=== PATIENT | male | born 1970 | race Caucasian/White ===

== ENCOUNTER → 2016-09-05 | Outpatient (CLI) | payer OTHER ==
[~2016-09-05] MED LIST: ASPI1TAB69 PO; ATOR40TA16 PO; CYCL1TAB29 PO; HYDR-3583 PO; LEVO150T7 PO; LISI10TA3 PO; METF500T PO; MULT-135 PO
== END ==
LOC: CPRE 12:02
PROVIDERS: ATTEND Neurological Surgery
DX: Z01.812 Encounter for preprocedural laboratory examination (principal)

== ENCOUNTER 2016-09-09 06:13 | Observation (INO) | payer OTHER ==
--- NOTE | 2016-09-06 15:37 | MH ---
cc: BYRON GANNON M.D., TIMOTHY J. M.D. HERDEL, G. FREDERICK M.D. DATE OF ADMISSION: 09/09/2016 ADMITTING DIAGNOSIS: Cervical degenerative disc disease. HISTORY OF PRESENT ILLNESS: This is a 46 year-old male who presented for an evaluation of neck pain radiating to the inferior scapular area on the right side. He states that he has had the pain since 2013. He has a history of cervical disc herniation 1993 and had posterior cervical laminectomy with Dr. Sorensen at that time. He states that in 2013 he was lifting Kettles at home and developed pain. He states that the pain was 10/10 and he saw his primary care physician who gave him some Decadron and then a MRI revealed he had two herniated discus. He saw Dr. Sorensen and was found to have right triceps weakness and tried conservative management. He states that his strength improved but he developed right index finger numbness that is constant. He was placed on gabapentin from a pain specialist and developed side effects and was not able to tolerate it. He stopped the medications, saw another pain specialist who wanted to restart the Gabapentin as well as other medications such as baclofen and Elavil. He wasn't interested in that and given that he had side effects from the Gabapentin already he tried to manage it on his own. Pain management felt that he would not benefit from injections given his previous posterior cervical spine surgery and therefore that was not an option. He states that he has daily pain, he feels like he has a knife in his Rhomboid area. He also has some pain in the right forearm with some muscle fasiculations in the right superior and lateral chest and anterior arm. He saw Dr. Dupree from neurology and he obtained a new MRI of the neck and brain. He was referred to us for evaluation of disc herniations pressing on the spinal cord. He denies any bowel or bladder incontinence. He is a avid runner and runs six days a week, 25 to 40 miles per week. He denies any left upper extremity symptoms. He has had PT in 2013 but did not feel that it helped. Pain management states that they can do injections secondary to scarring from his posterior cervical laminectomy. PAST MEDICAL HISTORY: 1. Significant for hypothyroidism. 2. Hyperlipidemia. 3. Hypertension. 4. Glucose impairment. 5. Cervical laminectomy at C4-C5 and C5-C6 in 1993. 6. Right wrist tendon repair. 7. Left meniscus repair 2013. CURRENT MEDICATIONS: 1. Levothyroxine 150 mcg daily. 2. Lisinopril 10 mg daily. 3. Metformin 500 mg daily. 4. Atorvastatin 40 mg daily. 5. Multivitamin daily. 6. Aspirin 81 mg daily, this was placed on hold one week prior to surgical intervention. ALLERGIES NO KNOWN DRUG ALLERGIES FAMILY HISTORY: Mother is alive is 73 years old, has hypertension. His father is alive at 72 years old, has coronary artery disease. His brother is alive at 44. Another brother who is alive. 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 He is , he has children. He does not smoke. He drinks alcohol on a rare occasion. REVIEW OF SYSTEMS CONSTITUTIONAL: He denies any fever or chills. EAR, NOSE, AND THROAT: No pharyngitis. Positive for sinus drainage. CARDIOVASCULAR: No chest pain or palpitations. RESPIRATORY: No cough or shortness of breath. GENITOURINARY: No dysuria or hematuria. MUSCULOSKELETAL: Positive for neck pain. NEUROLOGIC: No difficulty with speech or memory. Positive for pain in his arm with associated numbness. GASTROINTESTINAL: No nausea, vomiting, abdominal pain. PSYCHIATRIC: Positive for anxiety and depression. ENDOCRINE: No polyuria, polydipsia. HEMATOLOGIC: No bruising or bleeding tendencies. PHYSICAL EXAMINATION HEAD: Normocephalic, atraumatic. NECK: Supple. No carotid bruits heard on auscultation. LUNGS: Clear to auscultation bilaterally. CARDIOVASCULAR: Regular rate and rhythm, normal S1-S2. ABDOMEN: Soft, nontender. Positive bowel sounds. SKIN: Reveals no cyanosis or erythema. MUSCULOSKELETAL: He has 5/5 Strength in the upper and lower extremities, he ambulates without assistive device. Extension and rotation to the right side aggravates the symptoms with some restrictive range of motion. NEUROLOGIC: He is awake, alert and oriented, cranial nerves II through XII intact, His speech is fluent. Comprehension is good. Sensation is decreased primarily in the right second finger and some in the right first finger. Otherwise intact in the extremities. Reflexes 1+ in the upper extremities, 2+ in the lower extremities. No Sy's or clonus response. DATA REVIEWED; Reviewed MRI of the cervical spine from March 18, 2016, which reveals a disc osteophyte complex at C4-C5 level, eccentric to the left side. At the C5-C6 level is a disc osteophyte complex, central and ascending to the right side. At the C6-C7 level he is central and eccentric to the right side. There is left sided C4-C5 significant foraminal stenosis as well as moderate C5-C6, C6-C7 spinal and right sided foraminal stenosis. IMPRESSION: The patient has a chronic history of neck pain and right C6-C7 radiculopathy. He has undergone physical therapy without much relief and his Interventional pain specialist has informed him that he is not a candidate for cervical epidural steroid injections. The patient states that he cannot live with his current level of discomfort and activity restriction. He does have a C4-C5 disc osteophyte complex, eccentric to the left side as well as C5-C6 and C6-C7 disc osteophyte complex with spinal and foraminal stenosis to the right. The C5-C6 and C6-C7 levels appear to be most symptomatic at this point. PLAN: We have discussed treatment options with the patient which include continued conservative treatment measures with further physical therapy and pain management versus surgical intervention. We have discussed the anterior C5-C6, C6-C7 microdiskectomy with right foraminotomy infusion in detail. We have discussed the procedure, the risks, benefits, alternatives and Recovery time in great detail. We have discussed the risks along with the surgery to include but not limited to bleeding, infection, muscle weakness, voice hoarseness, difficulty swallowing, heart attack, stroke, blood clots, non fusion, scar tissue formation among others. The procedure was explained using spine models in the office and all of his questions were answered to his satisfaction. The patient states that he understands the procedure as well as the risks involved and he has requested that we proceed and he is therefore scheduled accordingly. Byron Gannon MD DICTATED BY: RENATO Santiago/jenelle /2:35 PM /2:45 PM
[~2016-09-09] VITALS: Ht 172.7 cm; Wt 73.0 kg
[~2016-09-09 06:13] MED LIST changes: -CYCL1TAB29 PO; -HYDR-3583 PO
[2016-09-09] MEDS ORDERED: METOPROLOL TARTRATE 25 MG TAB PO PRN (07:00)
[2016-09-09] MEDS ORDERED: POVIDONE IODINE 5% (ANTISEPSIS KIT) 4 APPLICATIONS EACH NARE PRN (07:00)
[2016-09-09] MEDS ORDERED: SODIUM CHLORID 0.9% 500 ML IV PRN (07:00)
[2016-09-09] MEDS ORDERED: LACTATED RINGER'S 1000 ML IV PRN (07:00)
[2016-09-09] MEDS ORDERED: INSULIN HUMAN REGULAR 1,000 UNITS/10 ML VIAL SQ PRN (07:00)
[2016-09-09] MEDS ORDERED: SODIUM CHLOR 0.9% 1000 ML INJ 1,000 ML IV SCH (07:00)
[2016-09-09] MEDS ORDERED: VANCOMYCIN HCL 1000 MG ON-CALL/NS 250 ML IV SCH ×2 (07:00)
[2016-09-09] MEDS ORDERED: CHLORHEXIDINE GLUCONATE 2 % 1 PACK (2 CLOTHS) TOPICAL PRN (07:00)
[2016-09-09] MEDS ORDERED: VANCOMYCIN HCL 1000 MG VIAL ONE (07:01)
[2016-09-09] MEDS ORDERED: BUPIVACAINE/EPINEPHRINE 0.5% PF 30 ML VIAL ONE (07:01)
[2016-09-09] MEDS ORDERED: THROMBIN (TOPICAL) 5,000 UNIT VIAL ONE (07:01)
[2016-09-09] MEDS ORDERED: GELFOAM SIZE 100 ONE (07:02)
[2016-09-09 07:11] VITALS: BP 124/76; PULSE 65; RESP 16; TEMP 98.4; O2SAT 97
[2016-09-09] MEDS ORDERED: APREPITANT 40 MG CAP ONE (08:02)
[2016-09-09] MEDS ORDERED: ACETAMINOPHEN 1000 MG/100 ML VIAL IV ONE (08:11)
[2016-09-09] MEDS ORDERED: FAMOTIDINE 20 MG/2 ML VIAL ONE (08:16)
[2016-09-09] MEDS ORDERED: DEXAMETHASONE SOD PHOS 4 MG/ML VIAL ONE (08:17)
[2016-09-09] MEDS ORDERED: SODIUM CHLORIDE 0.9% FLUSH 10 ML FLUSH IV FLUSH PRN (11:45)
[2016-09-09] MEDS ORDERED: GLUCAGON 1 MG/ML VIAL OTHER PRN (11:45)
[2016-09-09] MEDS ORDERED: DEXTROSE 50% IN WATER 50 ML VIAL(D50) IV PUSH PRN (11:45)
[2016-09-09] MEDS ORDERED: DO NOT ADM ANY ANTICOAGULANT DRUGS PRN (11:48)
--- NOTE | 2016-09-09 11:52 | PD.OP ---
MD David Collier MD Operative Report Date of Surgery: September 09, 2016 Preoperative Diagnosis: Cervical C5-6 and C6-7 advanced degenerative disc disease with disc osteophyte complex and associated spinal and foraminal stenosis; intractable neck pain with polyradiculopathy Postoperative Diagnosis: Same Procedure: Anterior cervical C5-6 and C6-7 microdiscectomy with interbody fusion; anterior C5-7 cervical plate placement; C5-6 and C6-7 interbody cage placement; microsurgical technique Anesthesia: Gen. endotracheal by Hernando Farley Surgeon: Vinayak Braswell M.D. Food Preparation Worker(s): Akosua Coker Operation and Findings: Following administration of general endotracheal anesthesia, the patient received a gram of vancomycin and Decadron 10 mg intravenously. Sequential compression devices were placed in supine position on a Edy table and all pressure points adequately padded. The head secured in a donut and anterior cervical region then shaved and prepped with Chloraprep and sterilely draped with Ioban along with the usual sterile draping. A transverse skin incision on the left side of the neck was then made after infiltrating the skin with 0.5% Marcaine with epinephrine solution extending down through the platysma. At the anterior border of the sternocleidomastoid further dissection was undertaken developing a plane between the carotid sheath laterally and the trachea esophagus medially. The prevertebral fascia was exposed and dissected out. The medial attachments of the longus colli muscles were detached and a self- retaining retractor used for exposure. The C5-6 disc space was localized with a marking the disc space and using lateral fluoroscopy. Webster distraction screws 14 mm length were placed one in the C5 and one in the C7 body interbody distraction and exposure. There was significant disc degeneration with disc height collapse and anterior osteophytes noted at the C5-6 and C6-7 levels and the osteophytes were resected with a Leksell and annulus incised with a 15 blade and further dissection undertaken using microtechnique with microscope magnification. Diskectomy was undertaken with pituitaries and the endplates were also decorticated with curettes and drill bit. And more posteriorly there was disk osteophyte complex compressing the thecal sac along with a significant uncovertebral joint hypertrophy with foraminal stenosis more prominent on the right side which was decompressed along with removal of the posterior longitudinal ligaments at both levels. The foramen was decompressed bilaterally using a Kerrison's and palpation with a nerve hook, the exiting nerve roots were felt to be free. The area was then copiously irrigated. I then placed a Peek cage packed with local autograft bone at the C5-6 interspace under fluoroscopy guidance. Webster distraction pins were removed and the holes plugged with Gelfoam for hemostasis. In order to facilitate the fusion and provide stabilization, a Precision spine cervical plate was then placed with two 14 mm variable angle screws in the C5 body, one in the C6 body, and two 14 mm fixed angle screws in the C7 body. The plate screw locking mechanism was then engaged. AP and lateral fluoroscopy confirmed good placement of the construct and the retractor was then removed. Muscular bleeding points were cauterized with bipolar cautery and Gelfoam was then also used for hemostasis which was removed. The platysma was then approximated using 3-0 Vicryl interrupted stitches and 3-0 Vicryl subcuticular stitch also placed in an interrupted fashion, and final skin closure was with Mastisol and Steri-Strips. Sterile dressing was then applied. The neck immobilized in a Gray J collar. The patient was then extubated and taken to the recovery room. There are no intraoperative complications and all sponge and needle counts were correct at the end of procedure. Estimated blood loss was about 50 cc. The patient did undergo intraoperative neurologic monitoring which remained stable throughout the surgery. Vinayak Braswell MD September 09, 2016 11:52
--- NOTE | 2016-09-09 11:58 | RADRPT ---
EXAM DATE/TIME: 09/09/2016 08:41 [facility] COMPARISON: No previous studies available for comparison. INDICATIONS : C5-C6-C7 anterior cervical fusion. Level localization. MEDICAL HISTORY : None. SURGICAL HISTORY : None. ENCOUNTER: Initial ACUITY: 1 day PAIN SCORE: Non-responsive. LOCATION: neck FINDINGS: Needle is directed at C6-C7. CONCLUSION: Needle at the C6-C7. Sukumar Peterson MD FACR on September 09, 2016 at 11:55 Board Certified Radiologist. This report was verified electronically.
[2016-09-09] MEDS ORDERED: PHENYLEPH/NS 1000 MCG/10 ML SYR IV ONE (12:00)
[2016-09-09] MEDS ORDERED: ePHEDrine/NS 25 MG/5 ML SYR IV ONE (12:00)
[2016-09-09] MEDS ORDERED: ONDANSETRON HCL 4 MG/2 ML VIAL IV PUSH ONE (12:00)
[2016-09-09] MEDS ORDERED: MAGNESIUM HYDROXIDE SUSP 30 ML CUP PO PRN (12:00)
[2016-09-09] MEDS ORDERED: RESP: ALBUTEROL 2.5 MG/3 ML NEB (PRN) NEB (12:00)
[2016-09-09] MEDS ORDERED: PROPOFOL 200 MG/20 ML AMP IV ONE (12:00)
[2016-09-09] MEDS ORDERED: ONDANSETRON HCL 4 MG/2 ML VIAL IV PRN (12:00)
[2016-09-09] MEDS ORDERED: ZOLPIDEM TARTRATE 5 MG TAB PO PRN (12:00)
[2016-09-09] MEDS ORDERED: LACTATED RINGER'S 1000 ML INJ 1,000 ML IV ONE (12:00)
[2016-09-09] MEDS ORDERED: PROCHLORPERAZINE INJ 10 MG/2 ML VIAL IM PRN (12:00)
[2016-09-09] MEDS ORDERED: ACETAMINOPHEN 325 MG TAB PO PRN (12:00)
[2016-09-09] MEDS ORDERED: cloNIDine HCL 0.1 MG TAB PO PRN (12:00)
[2016-09-09] MEDS ORDERED: MORPHINE SULFATE 4 MG/ML INJ IV PRN (12:00)
[2016-09-09] MEDS ORDERED: NEOSTIGMINE 3 MG/3 ML SYR IV ONE (12:00)
[2016-09-09] MEDS ORDERED: NS + KCL 20 MEQ INJ 1,000 ML IV SCH (12:00)
[2016-09-09] MEDS ORDERED: ALUMINUM/MAGNESIUM/SIMETH 30 ML CUP PO PRN (12:00)
[2016-09-09] MEDS ORDERED: *morphine SULFATE 8 MG/ML PERIprocedure ONLY ONE ×2 (12:04→12:51)
--- NOTE | 2016-09-09 12:04 | RADRPT ---
EXAM DATE/TIME: 09/09/2016 08:41 [facility] COMPARISON: No previous studies available for comparison. INDICATIONS : Post-op C5-C6-C7 anterior cervical fusion. MEDICAL HISTORY : None. SURGICAL HISTORY : None. ENCOUNTER: Initial ACUITY: 1 day PAIN SCORE: Non-responsive. LOCATION: Neck FINDINGS: Status post anterior cervical fusion at C5 through C7. Alignment is anatomic in the AP and lateral p rojection. ET tube and nasogastric tube are noted. CONCLUSION: Anatomic alignment. Sukumar Peterson MD FACR on September 09, 2016 at 11:54 Board Certified Radiologist. This report was verified electronically.
[2016-09-09] MEDS ORDERED: *ONDANSETRON 4 MG VIAL PERIprocedural Use ONLY ONE (12:05)
[2016-09-09] MEDS ORDERED: MIDAZOLAM HCL 2 MG/2 ML VIAL ONE (12:23)
[2016-09-09] MEDS ORDERED: fentaNYL CITRATE 250 MCG/5 ML AMP ONE (12:24)
[2016-09-09] MEDS ORDERED: CYCLOBENZAPRINE HCL 10 MG TAB PO PRN (13:00)
[2016-09-09] MEDS: ACETAMINOPHEN/HYDROcodone 325 MG/10 MG TAB PO PRN ×3 (13:21→21:32)
[2016-09-09 14:00] VITALS: BP 135/63; PULSE 79; RESP 16; TEMP 97.9; O2SAT 98
[2016-09-09] MEDS: INSULIN NovoLIN REGULAR SUPPLEMENTAL SCALE SQ SCH ×2 (16:00→21:37)
[2016-09-09 16:30] VITALS: BP 129/69; PULSE 74; RESP 16; TEMP 98.1; O2SAT 99
[2016-09-09] MEDS: MENTHOL LOZENGE BUCCAL PRN ×2 (16:30→21:32)
[2016-09-09 19:29] VITALS: BP 121/68; PULSE 64; RESP 19; TEMP 95.5; O2SAT 98
[2016-09-09] MEDS: DOCUSATE SODIUM 100 MG CAP PO SCH (21:31)
[2016-09-09] MEDS: SODIUM CHLORIDE 0.9% FLUSH 10 ML FLUSH IV FLUSH SCH (21:38)
[2016-09-09 23:25] VITALS: BP 114/71; PULSE 65; RESP 18; TEMP 97.5; O2SAT 97
[2016-09-10] MEDS: ACETAMINOPHEN/HYDROcodone 325 MG/10 MG TAB PO PRN ×2 (01:34→06:16)
[2016-09-10 03:38] VITALS: BP 119/72; PULSE 72; RESP 18; TEMP 97.2; O2SAT 97
[2016-09-10] MEDS ORDERED: LEVOTHYROXINE SODIUM 150 MCG TAB PO SCH (06:00)
[2016-09-10] MEDS: INSULIN NovoLIN REGULAR SUPPLEMENTAL SCALE SQ SCH (06:17)
[2016-09-10 08:00] VITALS: BP 133/77; PULSE 65; RESP 18; TEMP 97.9; O2SAT 99
[2016-09-10] MEDS: DOCUSATE SODIUM 100 MG CAP PO SCH (08:37)
[2016-09-10] MEDS: SODIUM CHLORIDE 0.9% FLUSH 10 ML FLUSH IV FLUSH SCH (08:44)
--- NOTE | 2016-09-10 08:52 | HHI.NSPN ---
(Ramone Garcia) History Chief Complaint: Right shoulder and upper extremity discomfort. (Ramone Garcia) Interval History Pt underwent a C5/C6 and C6/C7 anterior cervical fusion on 09/09/16. He complains of intermittent right shoulder and upper extremity discomfort. No paresthesias. Swallowing okay. Voiding well. Ambulating well. (Ramone Garcia) Review of Systems General: Negative for: fever, chills, insomnia Respiratory: Negative for: shortness of breath, cough, sputum Cardiovascular: Negative for: chest pain Gastrointestinal: Negative for: nausea, vomitting, diarrhea, constipation ( Ramone Garcia) Exam Results Vital Signs Date Time Temp Pulse Resp B/P Pulse Ox O2 Delivery O2 Flow Rate FiO2 09/10/16 08:00 97.9 65 18 133/77 99 09/09/16 12:55 Room Air 09/09/16 12:00 2 Intake and Output 09/09/16 09/09/16 09/10/16 08:00 16:00 00:00 Intake Total 2250 ml 840 ml Output Total 1225 ml 700 ml Balance 1025 ml 140 ml (Ramone Garcia) Physical Examination Resp: CTA bilaterally Heart: NSR no murmurs Abd: Soft positive bs Skin: Bandage changed by RN, clean and dry. Muscle: Moves UEs with good strength. Hubbard J collar in place. Neuro: Pt awake and alert. Follows commands well. Speech clear and appropriate. (Ramone Garcia) Lab, Micro, Other Results 09/09/16 09/09/16 09/10/16 15:00 23:00 07:00 Intake Total 2250 ml 840 ml 1210 ml Output Total 525 ml 1400 ml 2200 ml Balance 1725 ml -560 ml -990 ml Intake Oral 840 ml 1080 ml IV Total 250 ml 130 ml Other 2000 ml Output Urine Total 475 ml 1400 ml 2200 ml Estimated Blood Loss 50 ml # Voids 3 # Bowel Movements 0 0 (Ramone Garcia) Medical Decision Making Impression and Plan A: 46 y/o M s/p C5/C6 and C6/C7 ACF with plate placement. P: Discharge home Follow up as scheduled on preop instruction sheet. (Ramone Garcia) Attending Statement The exam, history, and the medical decision-making described in the above note were completed with the assistance of the mid-level provider. I reviewed and agree with the findings presented. I attest that I had a [id number] encounter with the patient on the same day, and personally performed and documented my assessment and findings in the medical record. (Vinayak Braswell MD) Ramone Garcia September 10, 2016 08:52 Vinayak Braswell MD September 10, 2016 09:16
[2016-09-10] MEDS ORDERED: CYCL1TAB29 PO (08:58)
[2016-09-10] MEDS ORDERED: HYDR-3583 PO (08:58)
[2016-09-10] MEDS ORDERED: PANTOPRAZOLE SOD 40 MG DELAYED RELEASE TAB PO SCH (09:00)
[2016-09-10] MEDS ORDERED: MULTIVITAMIN TAB PO SCH (09:00)
[2016-09-10] MEDS ORDERED: ASPIRIN EC 81 MG TABEC PO SCH (09:00)
[2016-09-10] MEDS ORDERED: ATORVASTATIN 40 MG TAB PO SCH (09:00)
[2016-09-10] MEDS ORDERED: LISINOPRIL 10 MG TAB PO SCH (09:00)
== END 2016-09-10 11:22 | disposition home or self-care (01) ==
LOC: HSDC 06:13 → HSDI 11:48 → N06A 13:13
PROVIDERS: ADMIT Neurological Surgery; ATTEND Neurological Surgery
DX: M50.122 Cervical disc disorder at C5-C6 level with radiculopathy (principal); M50.123 Cervical disc disorder at C6-C7 level with radiculopathy; M25.78 Osteophyte, vertebrae; M48.02 Spinal stenosis, cervical region; E03.9 Hypothyroidism, unspecified; E78.5 Hyperlipidemia, unspecified; I10 Essential (primary) hypertension; Z79.82 Long term (current) use of aspirin; Z87.891 Personal history of nicotine dependence
CPT/HCPCS: 20936; 22551; 22552; 22853; 72020; 72040; 76000; 82948; 94150; C1713; G0378; J0131; J0690; J1100; J2250; J2270; J2370; J2405; J2710; J3010; J3370; J3480; J7050; J7120; J8501; L0150; L0172

== ENCOUNTER 2016-12-16 12:37 | Day surgery (SDC) | payer OTHER ==
[~2016-12-16 12:37] MED LIST changes: +CYCL1TAB29 PO; +HYDR-3583 PO
[2016-12-16] MEDS ORDERED: SODIUM CHLORID 0.9% 500 ML IV PRN (14:00)
[2016-12-16] MEDS ORDERED: POVIDONE IODINE 5% (ANTISEPSIS KIT) 4 APPLICATIONS EACH NARE PRN (14:00)
[2016-12-16] MEDS ORDERED: INSULIN HUMAN REGULAR 1,000 UNITS/10 ML VIAL SQ PRN (14:00)
[2016-12-16] MEDS ORDERED: MISCELLANEOUS NURSING INFORMATION XX PRN (14:00)
[2016-12-16] MEDS ORDERED: CHLORHEXIDINE GLUCONATE 2 % 1 PACK (2 CLOTHS) TOPICAL PRN (14:00)
[2016-12-16] MEDS ORDERED: METOPROLOL TARTRATE 25 MG TAB PO PRN (14:00)
[2016-12-16] MEDS ORDERED: LACTATED RINGER'S 1000 ML IV PRN (14:00)
--- NOTE | 2016-12-16 14:39 | ECHRPT ---
Indication: TIA CONCLUSIONS Normal left ventricular size and wall thickness. The left ventricular systolic function is normal wi th an estimated ejection fraction in the range of 60-65%. Left ventricular diastolic function parameters a re normal. Normal atrial septal thickness. No atrial level shunt is demonstrated by color flow Doppler or agitated saline imaging. Structurally normal tricuspid valve. There is trace tricuspid valve regurgitation. Pulmonary arteria l systolic pressure could not be estimated due to an insufficient tricuspid valve regurgitation doppler jet for measurement. BP: / HR: Rhythm: MEASUREMENTS (Male / Female) Normal Values Technical Quality: DOPPLER TR Peak Velocity 151.0 cm/s TR Peak Gradient 9.1 mmHg Medications Complications There were no complications prior to, during or in recovery from the transesophag eal echocardiogram.. Proc. Components The patient was brought to the diagnostic imaging area in a fasting state after o btaining an informed consent. The patient was premedicated with IV Versed and IV Fentanyl. The hub associate ior pharynx was sprayed with Cetacaine spray and the patient was administered viscous Xylocaine 2 %. The KATT probe was passed into the posterior pharynx , mid-esophagus, distal esophagus, and gastric fundus. KATT was performed at multiple levels. The patient tolerated the procedure well and there were no complications. The patient was transferred to the floor in satisfactory condition.. FINDINGS LEFT VENTRICLE Normal left ventricular size and wall thickness. The left ventricular systolic function is normal wi th an estimated ejection fraction in the range of 60-65%. Left ventricular diastolic function parameters a re normal. RIGHT VENTRICLE Normal right ventricular size and systolic function. LEFT ATRIUM The left atrial size is normal. RIGHT ATRIUM The right atrial size is normal. ATRIAL APPENDAGES Normal left atrial appendage size with no evidence of thrombus formation. ATRIAL SEPTUM Normal atrial septal thickness. No atrial level shunt is demonstrated by color flow Doppler or agitated saline imaging. AORTA The aortic root and proximal ascending aorta are normal in size on limited imaging. MITRAL VALVE Structurally normal mitral valve. No mitral valve stenosis or regurgitation. AORTIC VALVE Trileaflet aortic valve. No aortic valve stenosis or regurgitation. TRICUSPID VALVE Structurally normal tricuspid valve. There is trace tricuspid valve regurgitation. Pulmonary arteria l systolic pressure could not be estimated due to an insufficient tricuspid valve regurgitation doppler jet for measurement. VESSELS The inferior vena cava is normal in size. PULMONARY VALVE The pulmonary valve is not well visualized. PERICADIUM No pericardial effusion. Jacek Ruiz MD, FACC (Electronically Signed) Final Date:16 December 2016 14:38
== END 2016-12-16 14:58 | disposition home or self-care (01) ==
LOC: HDOC 12:37 → HDIC 12:38 → HDOC 14:58
PROVIDERS: ATTEND Internal Medicine
DX: I63.9 Cerebral infarction, unspecified (principal); R93.8 Abnormal findings on diagnostic imaging of other specified body structures; Z98.1 Arthrodesis status
CPT/HCPCS: 93312; 93320; 93325